=== PATIENT | female | born 1970 | race Caucasian/White ===

== ENCOUNTER 2023-11-09 04:30 | Inpatient (IN) | payer OTHER ==
[~2023-11-09] VITALS: Ht 160 cm; Wt 73.5 kg
[2023-11-09 04:42] VITALS: BP 144/91; PULSE 98; RESP 18; TEMP 98.7; O2SAT 99
[2023-11-09] MEDS: ONDANSETRON 4 MG/2 ML VIAL IVP ONE (05:21)
[2023-11-09] MEDS: KETOROLAC 30 MG/ML VIAL IVP ONE (05:24)
[2023-11-09] MEDS: NACL 0.9% 1,000 ML IV ONE (05:25)
[2023-11-09 05:33] LABS: BASOPHILS # (AUTO) 0.1 K/uL (0.00-0.22); BASOPHILS % (AUTO) 0.5 % (0.0-2.0); EOSINOPHILS # (AUTO) 0.2 K/uL (0-0.4); EOSINOPHILS % (AUTO) 1.5 % (0.0-4.0); HEMATOCRIT 39.2 % (36-48); HEMOGLOBIN 12.8 g/dL (12.0-16.0); LYMPHOCYTES # (AUTO) 1.7 K/uL (2.5-16.5); LYMPHOCYTES % (AUTO) 13.6 % (20.5-51.1); MEAN CORPUSCULAR HEMOGLOBIN 27 pg (27-31); MEAN CORPUSCULAR HGB CONC 33 g/dL (33-37); MEAN CORPUSCULAR VOLUME 81.4 fL (80-94); MONOCYTES # (AUTO) 0.9 K/uL (0.8-1.0); MONOCYTES % (AUTO) 7.6 % (1.7-9.3); NEUTROPHILS # (AUTO) 9.5 K/uL (1.8-7.7); NEUTROPHILS % (AUTO) 76.8 % (42.2-75.2); PLATELET COUNT (AUTO) 271 K/uL (140-450); RED BLOOD CELL COUNT(AUTO) 4.81 MIL/uL (4.20-5.40); RED CELL DISTRIBUTION WIDTH 13.9 % (11.6-13.7); WHITE BLOOD COUNT (AUTO) 12.4 K/uL (4.8-10.8)
[2023-11-09 05:35] LABS: APPEARANCE,URINE CLEAR (CLEAR); BILIRUBIN,URINE NEGATIVE (NEGATIVE); BLOOD, URINE TRACE-I (NEGATIVE); COLOR,URINE YELLOW (YELLOW); LEUKOCYTE ESTERASE ,URINE NEGATIVE (NEGATIVE); NITRITE, URINE NEGATIVE (NEGATIVE); PROTEIN,URINE NEGATIVE (NEGATIVE); UGLUCOSE NEGATIVE (NEGATIVE); UROBILINOGEN,URINE 0.2 EU/dL (0.2 - 1)
[2023-11-09 05:40] LABS: BACTERIA,URINE FEW /HPF (None Seen); MUCUS,URINE None Seen /LPF (None Seen); SQUAMOUS EPITHELIAL CELL,UR 4-10 (MOD) /LPF (0-3 (FEW)); WBC,URINE 0-5 /HPF (0-5)
[2023-11-09 07:08] LABS: ANION GAP 14.8 (8-16); CARBON DIOXIDE 24.8 mmol/L (21-32); CREATININE 0.7 mg/dL (0.6-1.3); POTASSIUM 3.6 mmol/L (3.5-5.1)
[2023-11-09 07:17] LABS: ALBUMIN 3.6 g/dL (3.4-5.0); TOTAL BILIRUBIN 0.4 mg/dL (0.0-1.0); TOTAL PROTEIN, SERUM 7.8 g/dL (6.4-8.2)
[2023-11-09] MEDS ORDERED: ACETAMINOPHEN 325 MG TAB PO PRN (08:55)
[2023-11-09] MEDS ORDERED: HYDROcodone/APAP 5/325 MG 1 TAB TAB PO PRN (08:55)
[2023-11-09 09:42] LABS: LACTIC ACID 0.7 mmol/L (0.4-2.0)
[2023-11-09 10:10] VITALS: BP 134/74; PULSE 90; RESP 18; TEMP 97.9; O2SAT 100
[2023-11-09 10:30] VITALS: PULSE 90; RESP 18; O2SAT 100
[2023-11-09] MEDS: DEXT 5% /NACL 0.9% 1,000 ML IV SCH (10:30)
[2023-11-09] MEDS: MORPHINE SULFATE 2 MG/ML SYR IVP PRN (11:34)
[2023-11-09] MEDS ORDERED: ONDANSETRON 4 MG/2 ML VIAL IVP PRN (11:45)
[2023-11-09] MEDS: LACTATED RINGERS 1,000 ML IV SCH (11:45)
[2023-11-09] MEDS ORDERED: ACETAMINOPHEN 100 ML IV SCH (11:45)
[2023-11-09] MEDS ORDERED: HYDROmorphone 1 MG/ML AMP IVP PRN (11:45)
[2023-11-09] MEDS ORDERED: MEPERIDINE 25 MG/ML SYR IVP PRN (11:45)
[2023-11-09] MEDS: LIDOCAINE/EPI 1% 1:100000 20 ML VIAL INJ ONE (12:23)
[2023-11-09] MEDS: BUPIVACAINE-MPF 0.25% 30 ML VIAL INJ ONE (12:23)
[2023-11-09] MEDS: fentaNYL citrate 0.05 MG/ML VIAL ONE (12:24)
[2023-11-09] MEDS: DEXAMETHASONE 4 MG/ML VIAL ONE (12:25)
[2023-11-09] MEDS: MIDAZOLAM 2 MG/2 ML VIAL ONE (12:25)
[2023-11-09] MEDS: PROPOFOL 200 MG/20 ML VIAL IV ONE (12:26)
[2023-11-09] MEDS: METOCLOPRAMIDE 10 MG/2 ML INJ VIAL ONE (12:26)
[2023-11-09] MEDS: ONDANSETRON 4 MG/2 ML VIAL ONE (12:26)
[2023-11-09] MEDS: SUCCINYLCHOLINE CHLORIDE 200 MG/10 ML VIAL IVP ONE (12:27)
[2023-11-09] MEDS: ROCURONIUM 50 MG/5 ML VIAL IV ONE (12:27)
[2023-11-09] MEDS: PIPERACILLIN/TAZOBACTAM 3.375 GM in DEXTROSE 5% 50 ML IV SCH (13:00)
[2023-11-09] MEDS ORDERED: SEVOFLURANE 250 ML BTL INH ONE (13:00)
[2023-11-09] MEDS: SUGAMMADEX SODIUM 200 MG/2 ML VIAL IV ONE (13:58)
[2023-11-09] MEDS: HYDROmorphone 1 MG/ML AMP IVP PRN (15:37)
[2023-11-09 16:00] VITALS: BP 122/65; PULSE 82; RESP 18; TEMP 97.3; O2SAT 96
[2023-11-09 20:00] VITALS: BP 137/78; PULSE 80; RESP 18; TEMP 98; O2SAT 99
[2023-11-09] MEDS: HYDROcodone/APAP 5/325 MG 1 TAB TAB PO PRN (20:09)
[2023-11-10] VITALS: BP 126/64; PULSE 84; RESP 18; TEMP 98.2; O2SAT 98
[2023-11-10 05:23] LABS: BASOPHILS % (AUTO) 0.2 % (0.0-2.0); HEMATOCRIT 33.9 % (36-48); HEMOGLOBIN 10.9 g/dL (12.0-16.0); LYMPHOCYTES % (AUTO) 6.9 % (20.5-51.1); MEAN CORPUSCULAR HEMOGLOBIN 26 pg (27-31); MEAN CORPUSCULAR HGB CONC 32 g/dL (33-37); MEAN CORPUSCULAR VOLUME 81.6 fL (80-94); MONOCYTES # (AUTO) 1.1 K/uL (0.8-1.0); MONOCYTES % (AUTO) 7.7 % (1.7-9.3); NEUTROPHILS # (AUTO) 12.7 K/uL (1.8-7.7); NEUTROPHILS % (AUTO) 85.2 % (42.2-75.2); PLATELET COUNT (AUTO) 254 K/uL (140-450); RED BLOOD CELL COUNT(AUTO) 4.16 MIL/uL (4.20-5.40); WHITE BLOOD COUNT (AUTO) 14.9 K/uL (4.8-10.8)
[2023-11-10 05:54] LABS: ANION GAP 9.4 (8-16); CALCIUM 8.3 mg/dL (8.5-10.1); CARBON DIOXIDE 27.1 mmol/L (21-32); CREATININE 0.6 mg/dL (0.6-1.3); POTASSIUM 3.5 mmol/L (3.5-5.1)
[2023-11-10 08:00] VITALS: BP 137/77; PULSE 84; RESP 17; TEMP 97.4; O2SAT 99
[2023-11-10 20:00] VITALS: BP 140/75; PULSE 90; RESP 18; TEMP 97.5; O2SAT 95
[2023-11-11 04:00] VITALS: BP 121/75; PULSE 82; RESP 18; TEMP 97.7; O2SAT 98
[2023-11-11 05:53] LABS: BASOPHILS % (AUTO) 0.2 % (0.0-2.0); EOSINOPHILS # (AUTO) 0.1 K/uL (0-0.4); EOSINOPHILS % (AUTO) 1.3 % (0.0-4.0); HEMOGLOBIN 11.1 g/dL (12.0-16.0); LYMPHOCYTES # (AUTO) 1.7 K/uL (2.5-16.5); LYMPHOCYTES % (AUTO) 17.8 % (20.5-51.1); MEAN CORPUSCULAR HEMOGLOBIN 27 pg (27-31); MEAN CORPUSCULAR HGB CONC 33 g/dL (33-37); MEAN CORPUSCULAR VOLUME 81.7 fL (80-94); MONOCYTES # (AUTO) 0.8 K/uL (0.8-1.0); NEUTROPHILS % (AUTO) 72.7 % (42.2-75.2); PLATELET COUNT (AUTO) 271 K/uL (140-450); RED BLOOD CELL COUNT(AUTO) 4.16 MIL/uL (4.20-5.40); RED CELL DISTRIBUTION WIDTH 13.9 % (11.6-13.7); WHITE BLOOD COUNT (AUTO) 9.6 K/uL (4.8-10.8)
[2023-11-11 06:56] LABS: POTASSIUM 3.3 mmol/L (3.5-5.1)
[2023-11-11 06:57] LABS: ANION GAP 7.7 (8-16); CALCIUM 8.3 mg/dL (8.5-10.1); CARBON DIOXIDE 28.6 mmol/L (21-32); CREATININE 0.6 mg/dL (0.6-1.3)
[2023-11-11 08:00] VITALS: PULSE 82; RESP 18; O2SAT 98
[2023-11-11] MEDS ORDERED: IBUP-2213 PO (12:35)
[2023-11-11] MEDS ORDERED: AMOX-999 PO (12:35)
[2023-11-11] MEDS ORDERED: PANT40EC PO (12:36)
[2023-11-11] MEDS: ONDANSETRON 4 MG/2 ML VIAL IVP PRN (13:13)
[2023-11-11] MEDS ORDERED: SIMETHICONE 80 MG TAB.CHEW PO PRN (17:05)
[2023-11-11] MEDS: SIMETHICONE 80 MG TAB.CHEW ONE (17:29)
[2023-11-11 19:32] VITALS: BP 121/75; PULSE 82; RESP 18; TEMP 97.7
[2023-11-11 20:00] VITALS: BP 127/75; PULSE 80; RESP 18; TEMP 98.5; O2SAT 100
== END 2023-11-11 22:25 | disposition home or self-care (01) | DRG 399 ==
LOC: MED 04:30 → MMU 07:27
PROVIDERS: ADMIT Student in an Organized Health Care Education/Training Program; ATTEND Student in an Organized Health Care Education/Training Program
PROC: 0DTJ4ZZ Resection of Appendix, Percutaneous Endoscopic Approach (ICD-10-PCS; principal; 2023-11-09 12:00)
DX: K35.80 Unspecified acute appendicitis (principal); E86.1 Hypovolemia; D72.829 Elevated white blood cell count, unspecified; Z90.710 Acquired absence of both cervix and uterus; Z90.49 Acquired absence of other specified parts of digestive tract
CPT/HCPCS: 36415; 80048; 80053; 81001; 83605; 83690; 85025; 87040; 87081; 88304; 96361; 96365; 96375; 99285; J0330; J0694; J1100; J1170; J1885; J2001; J2250; J2270; J2405; J2543; J2704; J2765; J3010; J3490; J7030; J7060; J7120; Q9967